=== PATIENT | female | born 1960 | race African-American/Black ===

== ENCOUNTER 2016-12-15 22:34 | Emergency (ER) | payer MEDICAID ==
[~2016-12-15] VITALS: Ht 162.6 cm; Wt 61.2 kg
[~2016-12-15 22:34] MED LIST: AZITHROMYCIN250 MG PO; CYCLOBENZAPRINE10 MG ORAL; HYDROCHLOROTHIA25 MG ORAL; HYDROCHLOROTHIA25 MG PO; IBUPROFEN600 MG ORAL; IBUPROFEN600 MG PO; IMODIUM2 MG ORAL; METOPROLOL SUCC50 MG ORAL; NAPROSYN500 M1 ORAL; PANTOPRAZOLE SO40 MG ORAL; PHENERGAN/CODE120 ML PO; PROTONIX40 MG ORAL; RANITIDINE HCL150 MG ORAL; ZOFRAN8 MG ORAL; [UNRECOGNIZED DRUG - REMARK]; [UNRECOGNIZED DRUG - REMARK]
[2016-12-15 22:55] VITALS: BP 130/80
[2016-12-15] MEDS ORDERED: AUGMENTIN 875-1 EAC1 ORAL (23:08)
[2016-12-15] MEDS ORDERED: CLARITIN-D 121 EAC1 ORAL (23:08)
--- NOTE | 2016-12-15 23:08 | Emergency Room Report ---
History of Present Illness General Chief Complaint: Earache Source: Patient Present Illness [facility] This is a 56-year-old female with no significant past medical history. She presents with chief complaint of hard of hearing. This has been ongoing for a week but worse the last few days. Nose been clogged up. Said that she felt like she is under water. No fever or chills. No nausea no vomiting. Allergies: Coded Allergies: MORPHINE (Verified Allergy, Intermediate, hives, 06/24/12) Patient History Past Medical History: see triage record, old chart reviewed Past Surgical History: other Pertinent Family History: none Social History: Denies: smoking Now: No Immunizations: other Reviewed Nursing Documentation: PMH: Agreed, PSxH: Agreed Nursing Documentation-PMH Hx Hypertension: Yes Hx Gastrointestinal Problems: Yes - HYSTERECTOMY, gerd Review of Systems Eye: Denies: eye pain, blurred vision ENT: Reports: nose congestion, Denies: ear pain, throat swelling Respiratory: Denies: cough, shortness of breath Cardiovascular: Denies: chest pain, palpitations Gastrointestinal: Denies: abdominal pain, diarrhea, nausea, vomiting Musculoskeletal: Denies: back pain, joint pain Skin: Denies: rash Neurological: Denies: headache, numbness Endocrine: Denies: increased thirst, increased urine Hematologic/Lymphatic: Denies: easy bruising All Other Systems: negative except mentioned in HPI Physical Exam Vital Signs Date Time Temp Pulse Resp B/P (MAP) Pulse Ox O2 Delivery O2 Flow Rate FiO2 12/15/16 22:45 98.1 78 16 130/80 98 Room Air vitals normal Sp02 EP Interpretation: reviewed, normal General Appearance: well appearing, no apparent distress, alert Head: normocephalic, atraumatic Eyes: bilateral eye PERRL, bilateral eye EOMI ENT: hearing grossly normal, normal pharynx, other Neck: full range of motion, supple, no meningismus Respiratory: chest non-tender, lungs clear, normal breath sounds Cardiovascular #1: regular rate, rhythm, no murmur Gastrointestinal: normal bowel sounds, non tender, no mass, no organomegaly, no bruit, non-distended Musculoskeletal: back normal, gait/station normal, normal range of motion Psychiatric: mood/affect normal Skin: warm/dry Medical Decision Making Diagnostic Impression: Primary Impression: Otitis media Qualified Codes: H65.03 - Acute serous otitis media, bilateral ER Course Patient with bilateral otitis medial with effusion. Most likely secondary to sinus issue. We'll discharge home. No evidence of mastoiditis. No evidence of cerumen impaction. Last Vital Signs Date Time Temp Pulse Resp B/P (MAP) Pulse Ox O2 Delivery O2 Flow Rate FiO2 12/15/16 22:45 98.1 78 16 130/80 98 Room Air Status: improved Disposition: HOME, SELF-CARE Condition: Stable Scripts Loratadine/Pseudoephedrine (CLARITIN-D 12 HOUR TABLET) 1 Each Tab.er.12h 1 TAB ORAL EVERY 12 HOURS, #30 TAB Prov: MARGARITO JUAN M.D. 12/15/16 Amoxicillin/Potassium Clav 875-125* (AUGMENTIN 875-125 TABLET*) 1 Each Tablet 1 TAB ORAL TWICE A DAY, #14 TAB Prov: MARGARITO JUAN M.D. 12/15/16 Patient Instructions: Otitis Media, Adult, [id number] Additional Instructions: Followup with your DrDiana in 7 days. Not better a human a be referred to see a doesn't know Return if symptom worsen the MARGARITO JUAN M.D. Dec 15, 2016 23:08
[2016-12-15 23:15] VITALS: BP 130/78
== END 2016-12-15 23:15 | disposition home or self-care (01) ==
LOC: EMR 23:00
DX: H66.93 Otitis media, unspecified, bilateral (principal); R09.81 Nasal congestion; I10 Essential (primary) hypertension; K21.9 Gastro-esophageal reflux disease without esophagitis; Z90.710 Acquired absence of both cervix and uterus; Z88.5 Allergy status to narcotic agent
CPT/HCPCS: 99284

== ENCOUNTER 2016-12-18 10:56 | Emergency (ER) | payer MEDICAID ==
[~2016-12-18] VITALS: Ht 167.6 cm; Wt 72.1 kg
[~2016-12-18 10:56] MED LIST changes: +AUGMENTIN 875-1 EAC1 ORAL; +CLARITIN-D 121 EAC1 ORAL
[2016-12-18 11:04] VITALS: BP 151/88
[2016-12-18] MEDS ORDERED: Pseudoephedrine 30mg tab ORAL ONE (12:30)
[2016-12-18 14:11] VITALS: BP 122/81
--- NOTE | 2016-12-19 10:59 | Diagnostic Imaging Report ---
Indication: facial and orbital trauma. Technique: Continuous helical transaxial imaging of the maxillofacial structures obtained without intravenous contrast administration. Coronal 2-D reformats were also obtained. Study obtained in a Siemens sensation [address] Total Dose length Product (DLP): [address] Dose Index Volume (CTDIvol): 28.19, 0.15 mGy Comparison: None Findings: There is no evidence of an acute fracture. There is deformity of the left medial orbital wall probably from an old injury. Paranasal sinuses and mastoids are clear. Soft tissues are unremarkable. Impression: No acute injury identified. [facility] has communicated the preliminary results to the Emergency Department. Their findings are largely concordant with this report. The CT scanner at [facility] is accredited by the [employer] and the scans are performed using dose optimization techniques as appropriate to a performed exam including Automatic Exposure control.
--- NOTE | 2016-12-21 14:15 | Emergency Room Report ---
History of Present Illness General Chief Complaint: Headache Source: Patient, Medical Record Present Illness HPI 56YOF walk-in with still unable to hear bilaterally. Was here 3 days ago for same. Is taking antibiotics as prescribed. Denies drainage from ears. Denies ringing in ears, dizziness, headache, imbalance. States feels "pressure behind both eyes." has not been in water/swimming lately. Allergies: Coded Allergies: MORPHINE (Verified Allergy, Intermediate, hives, 06/24/12) Patient History Past Medical History: none Past Surgical History: none Pertinent Family History: none Social History: Denies: smoking, alcohol use, drug use Last Menstrual Period: hysterectomy done Now: No Immunizations: UTD Reviewed Nursing Documentation: PMH: Agreed, PSxH: Agreed Nursing Documentation-PMH Past Medical History: No History, Except For Hx Hypertension: Yes Hx Gastrointestinal Problems: Yes - HYSTERECTOMY, gerd Review of Systems All Other Systems: negative except mentioned in HPI Physical Exam Vital Signs Date Time Temp Pulse Resp B/P (MAP) Pulse Ox O2 Delivery O2 Flow Rate FiO2 12/18/16 11:04 98.1 95 16 151/88 97 Room Air Sp02 EP Interpretation: reviewed, normal General Appearance: normal inspection, well appearing, no apparent distress, alert, GCS 15, non-toxic Head: normocephalic, atraumatic Eyes: bilateral eye PERRL, bilateral eye EOMI ENT: normal ENT inspection, hearing grossly normal, normal pharynx, no angioedema, normal voice, TMs + canals normal, uvula midline, moist mucus membranes Neck: normal inspection, full range of motion, supple, no bony tend Respiratory: normal inspection, lungs clear, normal breath sounds, no respiratory distress, no retraction, no wheezing Cardiovascular #1: regular rate, rhythm, no edema Gastrointestinal: normal inspection, normal bowel sounds, non tender, soft, no guarding, no hernia Genitourinary: no CVA tenderness Musculoskeletal: normal inspection, back normal, normal range of motion, Ta' s Sign negative Neurologic: normal inspection, alert, oriented x3, responsive, 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 Afebrile No focal neuro deficits, no meningismus CT head negative for mass, sinusitis No otitis media Was given sudafed for congestion with improvement Was advised to complete Abx given by previous ERMD has PMD appt tomorrow for ENT followup referral Last Vital Signs Date Time Temp Pulse Resp B/P (MAP) Pulse Ox O2 Delivery O2 Flow Rate FiO2 12/18/16 14:11 78 16 122/81 99 Room Air 12/18/16 11:04 98.1 Status: improved Disposition: HOME, SELF-CARE Condition: Improved Patient Instructions: Sinus Headache Additional Instructions: - FINISH antibiotics - Try flonase nasal spray you have at home - Follow up with your doctor tomorrow to get a ENT referral/specialist ANNMARIE CORDON M.D. Dec 21, 2016 14:15
== END 2016-12-18 14:11 | disposition home or self-care (01) ==
LOC: EMR 11:50
DX: H91.93 Unspecified hearing loss, bilateral (principal); R09.81 Nasal congestion; Z88.6 Allergy status to analgesic agent; I10 Essential (primary) hypertension; Z90.710 Acquired absence of both cervix and uterus; K21.9 Gastro-esophageal reflux disease without esophagitis
CPT/HCPCS: 70486; 99283

== ENCOUNTER 2018-05-03 11:33 | Emergency (ER) | payer MEDICAID ==
[~2018-05-03] VITALS: Ht 167.6 cm; Wt 79.4 kg
--- NOTE | 2018-05-03 12:07 | Emergency Room Report ---
History of Present Illness General Chief Complaint: Headache Source: Patient Present Illness HPI 57yo f history of migraines and hypertension complains of having headache and palpitations for many months now, she is tried Imitrex and Elavil without complete relief so she came to get checked out. She reports the palps got worse today. Denies CP, F/C, trauma, SOB, OCP/HRT use, syncope, blurred vision, N/V. Allergies: Coded Allergies: CODEINE (Verified Allergy, Intermediate, 05/03/18) MORPHINE (Verified Allergy, Intermediate, hives, 06/24/12) Patient History Past Medical History: see triage record Now: No Reviewed Nursing Documentation: PMH: Agreed; PSxH: Agreed Nursing Documentation-PMH Hx Hypertension: Yes Hx Gastrointestinal Problems: Yes - HYSTERECTOMY, gerd Review of Systems All Other Systems: negative except mentioned in HPI Physical Exam Vital Signs Date Time Temp Pulse Resp B/P (MAP) Pulse Ox O2 Delivery O2 Flow Rate FiO2 05/03/18 11:52 98.4 86 16 140/80 98 Room Air Sp02 EP Interpretation: reviewed, normal General Appearance: no apparent distress, alert, non-toxic Head: normocephalic Eyes: bilateral eye normal inspection, bilateral eye PERRL, bilateral eye EOMI ENT: normal ENT inspection, hearing grossly normal, normal pharynx, no angioedema, normal voice, moist mucus membranes Neck: normal inspection, full range of motion, supple, supple/symm/no masses Respiratory: chest non-tender, lungs clear, normal breath sounds, chest symmetrical, palpation of chest normal Cardiovascular #1: normal peripheral pulses, regular rate, rhythm, tachycardia Cardiovascular #2: 2+ radial (R), 2+ radial (L) Gastrointestinal: normal inspection, non tender, soft, no mass, no guarding, no rebound Rectal: deferred Genitourinary: normal inspection, no CVA tenderness Musculoskeletal: back normal, gait/station normal, normal range of motion, non- tender, no calf tenderness Neurologic: alert, responsive, 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, motor strength/tone normal, sensory intact, speech normal Psychiatric: judgement/insight normal, memory normal, mood/affect normal, anxious Skin: normal color, no rash, warm/dry, normal turgor Lymphatic: no adenopathy Medical Decision Making Diagnostic Impression: Primary Impression: Headache Additional Impression: Palpitations ER Course Patient given reglan, will dc as HR normal, ekg normal, VSS, neuro exam normal, headache is chronic, will dc with PMD f/u; Pt with h/o MVP, on beta gail, will rec further eval with holter monitor and/or echo, patient understands and PENA improved, as have palps, so will have outpt workup.. EKG Diagnostic Results EKG Time: 12:10 EP Interpretation: no stemi Rate: normal Rhythm: NSR ST Segments: no acute changes ASA given to the pt in ED: No Rhythm Strip Diag. Results Rhythm Strip Time: 12:24 EP Interpretation: yes Rate: 70 Rhythm: NSR, no PVC's, no ectopy Chest X-Ray Diagnostic Results Chest X-Ray Diagnostic Results : Chest X-Ray Ordered: Yes # of Views/Limited/Complete: 1 View Indication: Other - palpitations EP Interpretation: Yes Interpretation: no consolidation, no effusion, no pneumothorax, no acute cardiopulmonary disease Impression: No acute disease Electronically Signed by: Keyona Moraes MD Last Vital Signs Date Time Temp Pulse Resp B/P (MAP) Pulse Ox O2 Delivery O2 Flow Rate FiO2 05/03/18 11:52 98.4 86 16 140/80 98 Room Air Disposition: HOME, SELF-CARE Condition: Stable KEYONA MORAES M.D May 03, 2018 12:07
[2018-05-03] MEDS ORDERED: Metoclopramide 10mg/10ml Liq ORAL ONE (12:15)
[2018-05-03] MEDS ORDERED: Acetaminophen 500mg (ES) tab ORAL ONE (12:15)
[2018-05-03 12:26] VITALS: BP 140/80
--- NOTE | 2018-05-03 12:26 | NUR ---
ED Nurse Note: patient came into ED from home c/o headache, she has been having this headache for 3 months, last night, it woke her up from pain, so she decided to come into ED today. ambulatory, a/o x4
--- NOTE | 2018-05-03 12:28 | NUR ---
ED Nurse Note: medication given, sandwich/juice given as pt asked, dr. amanda carranza to give
[2018-05-03] MEDS ORDERED: REGLAN10 M1 ORAL (13:23)
--- NOTE | 2018-05-03 13:30 | NUR ---
ED Nurse Note: patient is being discharged, cleared by ERMD Dr. Lares, discarge instruction/prescription/paper given to the patient, patient verbalized understanding, patient signed the paper. patient ambulated out of ED with steady gait, with all belongings. ID band removed.
[2018-05-03 13:37] VITALS: BP 140/80
--- NOTE | 2018-05-03 14:39 | Diagnostic Imaging Report ---
Indication: Dyspnea Comparison: 04/27/2014 A single view chest radiograph was obtained. Findings: Cardiomediastinal appearance is within normal limits for age. The lungs are clear. Pulmonary vascularity is appropriate. The diaphragmatic contour is smooth and costophrenic angles are sharp. No pleural effusions are identified. The bones are unremarkable. Impression: No acute findings
--- NOTE | 2018-05-05 12:32 | Cardiology Report ---
APPROVED REPORT EKG Measurement Heart [id number] Normal sinus rhythm Normal ECG
== END 2018-05-03 13:30 | disposition home or self-care (01) ==
LOC: EMR 12:10
DX: R51 Headache (principal); R00.2 Palpitations; I10 Essential (primary) hypertension; Z90.710 Acquired absence of both cervix and uterus
CPT/HCPCS: 71045; 93005; 99283

== ENCOUNTER 2018-08-16 18:06 | Emergency (ER) | payer MEDICAID ==
[~2018-08-16] VITALS: Ht 165.1 cm; Wt 72.6 kg
[~2018-08-16 18:06] MED LIST changes: +REGLAN10 M1 ORAL
[2018-08-16 18:30] VITALS: BP 137/78
[2018-08-16 19:04] LABS: BASOPHILS % (AUTO) 1.5 % (0.0-2.0); EOSINOPHILS % (AUTO) 3.8 % (0.0-3.0); HEMATOCRIT 38.4 % (37.0-47.0); HEMOGLOBIN 12.4 G/DL (12.0-16.0); LYMPHOCYTES % (AUTO) 35.9 % (20.0-45.0); MEAN CORPUSCULAR VOLUME 91 FL (80-99); NEUTROPHILS % (AUTO) 51.8 % (45.0-75.0); PLATELET COUNT 237 K/UL (150-450); RED BLOOD COUNT 4.19 M/UL (4.20-5.40); RED CELL DISTRIBUTION WIDTH 13.2 % (11.6-14.8); WHITE BLOOD COUNT 6.4 K/UL (4.8-10.8)
[2018-08-16 19:11] LABS: ANION GAP 7 mmol/L (5-15); BLOOD UREA NITROGEN 14 mg/dL (7-18); CALCIUM 9.4 MG/DL (8.5-10.1); CARBON DIOXIDE 29 MMOL/L (21-32); CHLORIDE 106 MMOL/L (98-107); CREATININE 0.9 MG/DL (0.55-1.30); POTASSIUM 3.9 MMOL/L (3.5-5.1); SODIUM 142 MMOL/L (136-145)
[2018-08-16 19:16] LABS: ALANINE AMINOTRANSFERASE 22 U/L (12-78); ALBUMIN 3.7 G/DL (3.4-5.0); ALBUMIN/GLOBULIN RATIO 0.9 (1.0-2.7); ALKALINE PHOSPHATASE 92 U/L (46-116); ASPARTATE AMINO TRANSFERASE 18 U/L (15-37); BILIRUBIN,TOTAL 0.1 MG/DL (0.2-1.0)
[2018-08-16] MEDS ORDERED: Acetaminophen 500mg (ES) tab ORAL ONE (19:30)
--- NOTE | 2018-08-16 20:30 | Emergency Room Report ---
History of Present Illness General Chief Complaint: Pain Source: Patient Present Illness HPI 57-year-old female with history of hypertension currently controlled with medication and history of opiate abuse currently on Suboxone here complaining of worsening pain of her right side sciatica as well as heaviness in the right lower extremity. Denies any recent fall or injury however she does have a sedentary lifestyle and complains of occasional numbness in the right lower extremity. Denies chest pain, shortness of breath, palpitation, headache, vision changes, urinary symptoms. She says that her ankle starts in the right buttocks and continues and radiates to the right lower extremity. denies Tingling. rating the pain, 7 and 5 out of 10. Patient is on Tylenol and ibuprofen for pain. Allergies: Coded Allergies: CODEINE (Verified Allergy, Intermediate, 05/03/18) MORPHINE (Verified Allergy, Intermediate, hives, 06/24/12) Patient History Past Medical History: see triage record Past Surgical History: unable to obtain Pertinent Family History: none Now: No Immunizations: UTD Reviewed Nursing Documentation: PMH: Agreed; PSxH: Agreed Nursing Documentation-PMH Hx Hypertension: Yes Hx Gastrointestinal Problems: Yes - HYSTERECTOMY, gerd Review of Systems All Other Systems: negative except mentioned in HPI Physical Exam Vital Signs Date Time Temp Pulse Resp B/P (MAP) Pulse Ox O2 Delivery O2 Flow Rate FiO2 08/16/18 18:13 98.4 84 18 95 Room Air 08/16/18 18:30 137/78 Sp02 EP Interpretation: reviewed, normal General Appearance: normal inspection Head: normocephalic, atraumatic Eyes: bilateral eye normal inspection, bilateral eye PERRL ENT: normal ENT inspection, normal pharynx Neck: normal inspection, full range of motion Respiratory: normal inspection, lungs clear, no rhonchi, no wheezing Cardiovascular #1: normal inspection, no edema, no murmur Cardiovascular #2: 2+ dorsalis pedis (R), 2+ dorsalis pedis (L) Gastrointestinal: normal inspection, non tender Genitourinary: no CVA tenderness Musculoskeletal: back normal, gait/station normal, no calf tenderness Neurologic: normal inspection, alert, oriented x3 Psychiatric: normal inspection, judgement/insight normal Skin: normal inspection, normal color, no rash, warm/dry Lymphatic: normal inspection, no adenopathy Medical Decision Making PA Attestation All my diagnosis and treatment plans were reviewed ad discussed with my supervising physician Dr. Moran Diagnostic Impression: Primary Impression: PVD (peripheral vascular disease) Additional Impression: Sciatic leg pain ER Course 57-year-old female with history of hypertension currently controlled with medication and history of opiate abuse currently on Suboxone here complaining of worsening pain of her right side sciatica as well as heaviness in the right lower extremity. Denies any recent fall or injury however she does have a sedentary lifestyle and complains of occasional numbness in the right lower extremity. Denies chest pain, shortness of breath, palpitation, headache, vision changes, urinary symptoms. She says that her ankle starts in the right buttocks and continues and radiates to the right lower extremity. denies Tingling. rating the pain, 7 and 5 out of 10. Patient is on Tylenol and ibuprofen for pain. Ddx considered but are not limited to: sciatica, DVT, PVD, collette insufficiency, osteoarthritis Vital signs: are WNL, pt. is afebrile H&PE are most consistent with: sciatica, PVD ORDERS: collette doppler US RLE,tylenol ED INTERVENTIONS: tylenol. DISCHARGE: At this time pt. is stable for d/c to home. Will provide printed patient care instructions, and any necessary prescriptions. Care plan and follow up instructions have been discussed with the patient prior to discharge. CT/MRI/US Diagnostic Results CT/MRI/US Diagnostic Results : Imaging Test Ordered: right lower extermity collette doppler US Impression Deep veins: Unremarkable. No DVT in the visualized common femoral, femoral, proximal deep femoral or popliteal veins. The veins demonstrate normal color flow, are normally compressible, with normal phasic flow and/or augmentation response. Superficial veins: Unremarkable. No thrombus in the visualized great saphenous vein. Soft tissues: No acute findings. No popliteal cyst. IMPRESSION: Normal right lower extremity duplex venous ultrasound. Last Vital Signs Date Time Temp Pulse Resp B/P (MAP) Pulse Ox O2 Delivery O2 Flow Rate FiO2 08/16/18 20:05 98.4 08/16/18 18:30 76 18 137/78 95 Room Air Disposition: HOME, SELF-CARE Condition: Stable Patient Instructions: Lumbar Diskectomy Additional Instructions: Yanci for assessment of high blood pressure and assessment of pre- peripheral vascular disease wear compression stockings Komal Post August 16, 2018 20:30
[2018-08-16 20:45] VITALS: BP 137/78
--- NOTE | 2018-08-16 20:59 | Diagnostic Imaging Report ---
EXAM: US Duplex Right Lower Extremity Veins CLINICAL HISTORY: PAIN TECHNIQUE: Real-time duplex ultrasound scan of the right lower extremity veins integrating B-mode two-dimensional vascular structure, Doppler spectral analysis, color flow Doppler imaging and compression. COMPARISON: No relevant prior studies available. FINDINGS: Deep veins: Unremarkable. No DVT in the visualized common femoral, femoral, proximal deep femoral or popliteal veins. The veins demonstrate normal color flow, are normally compressible, with normal phasic flow and/or augmentation response. Superficial veins: Unremarkable. No thrombus in the visualized great saphenous vein. Soft tissues: No acute findings. No popliteal cyst. IMPRESSION: Normal right lower extremity duplex venous ultrasound.
== END 2018-08-16 20:43 | disposition home or self-care (01) ==
LOC: EMR 18:48
DX: I73.9 Peripheral vascular disease, unspecified (principal); M54.31 Sciatica, right side; Z90.710 Acquired absence of both cervix and uterus; I10 Essential (primary) hypertension; K21.9 Gastro-esophageal reflux disease without esophagitis; Z88.6 Allergy status to analgesic agent; Z79.899 Other long term (current) drug therapy
CPT/HCPCS: 36415; 80053; 80307; 85025; 85379; 93971; 99284